=== PATIENT | female | born 1980 | race Caucasian/White ===

== ENCOUNTER 2022-10-02 12:24 | Inpatient (IN) | payer MEDICAID ==
[~2022-10-02] VITALS: Ht 160 cm; Wt 83.9 kg
[2022-10-02] MEDS ORDERED: METHYLERGONOVINE MALEATE 0.2 MG/ML IM PRN (14:00)
[2022-10-02] MEDS ORDERED: BUTORPHANOL TARTRATE 2 MG/ML VIAL IV PRN (14:00)
[2022-10-02] MEDS ORDERED: LIDOCAINE HCL 1% 20ML VIAL (Pyxis) INJ INFIL SCH (14:00)
[2022-10-02] MEDS ORDERED: LACTATED RINGERS 1,000 ML IV SCH (14:00)
[2022-10-02] MEDS ORDERED: MISOPROSTOL 100MCG TABLET VG SCH (14:00)
[2022-10-02] MEDS ORDERED: CARBOPROST TROMETHAMINE 250 MCG/ML AMPUL IM PRN (14:00)
[2022-10-02] MEDS ORDERED: NALOXONE HCL 0.4 MG/ML 1ML VIAL IM PRN (14:00)
[2022-10-02 15:23] LABS: BASOPHILS % 0.1 % (0.0-2.0); EOSINOPHILS % 0.1 % (0.0-5.0); HEMOGLOBIN. 13.1 g/dL (12.0-16.0); LYMPHOCYTES % 14.7 % (20.0-50.0); MEAN CORPUSCULAR HEMOGLOBIN 29.4 pg (28.0-32.0); MEAN CORPUSCULAR VOLUME 87.4 fL (81.0-99.0); MONOCYTES % 5.4 % (2.0-8.0); NEUTROPHILS % 79.7 % (40.0-76.0); PLATELET 240 x1000/uL (130-400); RED BLOOD CELL COUNT 4.46 mill/uL (4.2-5.4); RED CELL DISTRIBUTION WIDTH 15.2 % (11.6-14.6)
[2022-10-02 15:23] LABS: CLARITY URINE CLEAR (CLEAR); COLOR URINE YELLOW (YELLOW); KETONES URINE TRACE (NEGATIVE); LEUKOCYTE ESTERASE URINE 3+ (NEGATIVE); NITRITE URINE NEGATIVE (NEGATIVE); OCCULT BLOOD URINE TRACE (NEGATIVE); PROTEIN URINE NEGATIVE (NEGATIVE); SPECIFIC GRAVITY URINE 1.013 (1.005-1.030)
[2022-10-02 15:34] LABS: INR 0.9; PARTIAL THROMBOPLASTIN TIME 29.5 sec (23.4-31.0); PROTHROMBIN TIME 9.8 sec (9.6-11.0)
[2022-10-02 15:38] LABS: *AMPHETAMINES SCREEN URINE NEGATIVE (NEGATIVE); *BARBITURATES SCREEN URINE NEGATIVE (NEGATIVE); *BENZODIAZEPINES SCREEN URINE NEGATIVE (NEGATIVE); *COCAINE SCREEN URINE NEGATIVE (NEGATIVE); CANNABINOID URINE SCREEN NEGATIVE (NEGATIVE); METHADONE URINE SCREEN NEGATIVE (NEGATIVE); OPIATES URINE SCREEN NEGATIVE (NEGATIVE); PHENCYCLIDINE URINE SCREEN NEGATIVE (NEGATIVE)
[2022-10-02 16:06] LABS: HEPATITIS B SURFACE ANTIGEN NEGATIVE
[2022-10-02] MEDS: OXYTOCIN 30 UNITS/500ML NS PMX 500 ML IV SCH ×2 (16:21→19:50)
[2022-10-02] MEDS ORDERED: HEMORRHOIDAL SUPP PR PRN (20:30)
[2022-10-02] MEDS ORDERED: OXYCODONE HCL/ACETAMINOPHEN 5/325MG TABLET PO PRN (20:30)
[2022-10-02] MEDS ORDERED: OXYTOCIN 30 UNITS/500ML NS PMX 500 ML IV SCH (20:30)
[2022-10-02] MEDS ORDERED: IBUPROFEN 400MG TABLET PO PRN (20:30)
[2022-10-02] MEDS ORDERED: RHO(D) IMMUNE GLOBULIN 300 MCG/SYR IM PRN (20:30)
[2022-10-02] MEDS ORDERED: GLYCERIN/WITCH HAZEL LEAF MEDICATED PAD TOP PRN (20:30)
[2022-10-02] MEDS ORDERED: BISACODYL 10MG SUPP PR PRN (20:30)
[2022-10-02] MEDS ORDERED: BENZOCAINE/LANOLIN/ALOE VERA SPRAY TOP PRN (20:30)
[2022-10-02] MEDS: DOCUSATE SODIUM 100MG CAPSULE PO SCH (21:00)
[2022-10-02] MEDS: SIMETHICONE 80MG TABLET CHEW PO SCH (21:00)
[2022-10-02 21:15] VITALS: BP 106/60
[2022-10-02 22:00] VITALS: BP 110/56
[2022-10-02] MEDS: IBUPROFEN 800MG TABLET PO PRN (22:58)
[2022-10-03 05:00] VITALS: BP 107/51
[2022-10-03 08:10] VITALS: BP 102/56
[2022-10-03 08:11] LABS: BASOPHILS % 0.1 % (0.0-2.0); EOSINOPHILS % 0.2 % (0.0-5.0); HEMATOCRIT. 33.8 % (36.0-48.0); HEMOGLOBIN. 11.5 g/dL (12.0-16.0); LYMPHOCYTES % 19.6 % (20.0-50.0); MEAN CORPUSCULAR HEMOGLOBIN 30.1 pg (28.0-32.0); MEAN CORPUSCULAR VOLUME 88.1 fL (81.0-99.0); MEAN PLATELET VOLUME 7.9 fl (7.4-10.4); MONOCYTES % 7.4 % (2.0-8.0); NEUTROPHILS % 72.7 % (40.0-76.0); PLATELET 221 x1000/uL (130-400); RED BLOOD CELL COUNT 3.83 mill/uL (4.2-5.4); RED CELL DISTRIBUTION WIDTH 15.2 % (11.6-14.6)
[2022-10-03] MEDS: MAGNESIUM/ALUMINUM HYDROXIDE/SIMETHICONE 30ML UDC PO SCH ×3 (08:18→21:00)
[2022-10-03] MEDS: SIMETHICONE 80MG TABLET CHEW PO SCH ×3 (08:18→21:00)
[2022-10-03] MEDS: FERROUS SULFATE 325MG TABLET PO SCH ×2 (08:18→14:13)
[2022-10-03] MEDS ORDERED: PRENATAL VIT/FE FUMARATE/FA TABLET PO SCH (09:00)
[2022-10-03] MEDS ORDERED: TETANUS, DIPHTHERIA, PERTUSSIS VAC/PF 0.5ML (>10YR OLD) IM ONE (10:00)
[2022-10-03 16:30] VITALS: BP 107/59
[2022-10-03 20:00] VITALS: BP 103/63
[2022-10-03] MEDS: DOCUSATE SODIUM 100MG CAPSULE PO SCH (21:00)
[2022-10-04 00:30] VITALS: BP 115/74
[2022-10-04] MEDS: IBUPROFEN 800MG TABLET PO PRN (04:23)
[2022-10-04 04:26] VITALS: BP 118/62
[2022-10-04] MEDS ORDERED: FERR-63 PO (06:37)
[2022-10-04] MEDS ORDERED: IBUP-2030 PO (06:37)
[2022-10-04] MEDS ORDERED: MULT-1146 MT (06:37)
[2022-10-04 08:00] VITALS: BP 108/62
== END 2022-10-04 11:45 | disposition home or self-care (01) | DRG 560 ==
LOC: 8 EST LDRP 12:24 → OBSVTOIN 14:00 → 8EST 21:00
PROVIDERS: ADMIT Obstetrics & Gynecology; ATTEND Obstetrics & Gynecology
PROC: 10E0XZZ Delivery of Products of Conception, External Approach (ICD-10-PCS; principal; 2022-10-02)
PROC: 0KQM0ZZ Repair Perineum Muscle, Open Approach (ICD-10-PCS; 2022-10-02)
DX: O70.1 Second degree perineal laceration during delivery (principal); Z37.0 Single live birth; Z20.822 Contact with and (suspected) exposure to COVID-19; Z3A.38 38 weeks gestation of pregnancy
CPT/HCPCS: 36415; 76805; 76818; 80305; 81003; 82947; 85025; 86592; 86703; 86762; 86850; 86900; 87340; 87426; 90715; 99281; G0378; J0595; J3490; J7120; J2590